=== PATIENT | female | born 1985 | race Caucasian/White ===

== ENCOUNTER 2017-11-01 12:17 | Emergency (ER) | payer BC ==
[~2017-11-01] VITALS: Ht 177.8 cm; Wt 69.1 kg
[2017-11-01 13:21] LABS: BASOPHILS # (AUTO) 0.01 x10^3/uL (0-0.1); BASOPHILS % (AUTO) 0 % (0-1); EOSINOPHILS # (AUTO) 0.08 x10^3/uL (0-0.4); EOSINOPHILS % (AUTO) 2 % (1-7); LYMPHOCYTES # (AUTO) 1.62 x10^3/uL (1-3.4); LYMPHOCYTES % (AUTO) 39 % (22-44); MD NO; MEAN CORPUSCULAR HEMOGLOBIN 35.4 pg (27.0-34.8); MEAN CORPUSCULAR HGB CONC 34.3 g/dL (32.4-35.8); MEAN CORPUSCULAR VOLUME 103.3 fL (80-100); MEAN PLATELET VOLUME 7.4 fL (7.4-10.4); MONOCYTES # (AUTO) 0.46 x10^3/uL (0.2-0.8); MONOCYTES % (AUTO) 11 % (2-9); NEUTROPHILS # (AUTO) 2.03 x10^3/uL (1.8-6.8); NEUTROPHILS % (AUTO) 48 % (42-75); PLATELET COUNT 238 x10^3/uL (130-400); RED BLOOD COUNT 4.21 x10^6/uL (3.82-5.3); RED CELL DISTRIBUTION WIDTH 13.8 % (9.6-15.2)
[2017-11-01] MEDS ORDERED: ONDANSETRON ODT 4 MG ONE (13:27)
[2017-11-01] MEDS ORDERED: KETOROLAC 30 MG/1 ML ONE (13:28)
[2017-11-01 13:30] LABS: ALBUMIN 3.5 g/dL (3.4-5.0); ANION GAP 9 mmol/L (5-15); CALCIUM 8.5 mg/dL (8.5-10.1); CHLORIDE 110 mmol/L (98-107)
[2017-11-01] MEDS ORDERED: ONDANSETRON ODT 4 MG PO ONE (13:30)
[2017-11-01] MEDS ORDERED: KETOROLAC 30 MG/1 ML IM ONE (13:30)
[2017-11-01 13:52] LABS: CULTURE INDICATED? YES; MICROSCOPIC INDICATED
[2017-11-01 14:39] VITALS: BP 132/87
[2017-11-01] MEDS ORDERED: CEFTRIAXONE 1,000 MG ONE (14:45)
[2017-11-01] MEDS ORDERED: CEFTRIAXONE 1,000 MG IM ONE (15:00)
== END 2017-11-01 15:24 | disposition home or self-care (01) ==
LOC: ED 15:18
DX: N30.00 Acute cystitis without hematuria (principal)
CPT/HCPCS: 36415; 76830; 80048; 81001; 82040; 84703; 85025; 87077; 87086; 87186; 96372; 99285; J0696; J1885; Q0162

== ENCOUNTER 2018-08-06 13:51 | Emergency (ER) | payer BC ==
[~2018-08-06] VITALS: Ht 177.8 cm; Wt 70.8 kg
[2018-08-06 13:53] VITALS: BP 133/83
[2018-08-06 14:12] LABS: BASOPHILS # (AUTO) 0.02 x10^3/uL (0-0.1); BASOPHILS % (AUTO) 0 % (0-1); EOSINOPHILS # (AUTO) 0.04 x10^3/uL (0-0.4); EOSINOPHILS % (AUTO) 1 % (1-7); LYMPHOCYTES # (AUTO) 1.84 x10^3/uL (1-3.4); LYMPHOCYTES % (AUTO) 35 % (22-44); MD NO; MEAN CORPUSCULAR HEMOGLOBIN 34.8 pg (27.0-34.8); MEAN CORPUSCULAR HGB CONC 34.4 g/dL (32.4-35.8); MEAN CORPUSCULAR VOLUME 101.3 fL (80-100); MEAN PLATELET VOLUME 7.7 fL (7.4-10.4); MONOCYTES # (AUTO) 0.54 x10^3/uL (0.2-0.8); MONOCYTES % (AUTO) 10 % (2-9); NEUTROPHILS # (AUTO) 2.76 x10^3/uL (1.8-6.8); NEUTROPHILS % (AUTO) 53 % (42-75); PLATELET COUNT 252 x10^3/uL (130-400); RED BLOOD COUNT 3.89 x10^6/uL (3.82-5.3)
--- NOTE | 2018-08-06 14:20 | NUR ---
PT AMBULATED STEADIY TO ROOM FROM LOBBY WITH [employer] OPERATOR. PT REPORTS INTERMITTENT RLQ ABD PAIN X 'A WHILE'. NO AGGRAVATING OR RELIEVING FACTORS. RLQ NON-TENDER. DENIES N/V/D/FEVER. LMP: "I'M ON IT NOW" PT TO US AT THIS TIME. PT AWARE OF NEED FOR UA.
[2018-08-06 14:25] LABS: ALANINE AMINOTRANSFERASE 27 U/L (12-78); ALBUMIN 3.9 g/dL (3.4-5.0); ANION GAP 6 mmol/L (5-15); CALCIUM 8.6 mg/dL (8.5-10.1); CHLORIDE 108 mmol/L (98-107)
[2018-08-06 14:30] LABS: ALKALINE PHOSPHATASE 55 U/L (45-117); BILIRUBIN,TOTAL 0.6 mg/dL (0.2-1.0); TOTAL PROTEIN 7.3 g/dL (6.4-8.2)
--- NOTE | 2018-08-06 14:48 | NUR ---
PT AWARE OF ORDERED STRAIGHT CATH. PT REPORTS "I'M REALLY BARELY BLEEDING. CAN I TRY IT IN A CUP INSTEAD?". PT EDUCATED ON CLEAN CATCH AND AMBULATED STEADILY TO BATHROOM TO PROVIDE UA. UA COLLECTED AND SENT TO LAB
[2018-08-06 15:02] LABS: MICROSCOPIC AUTO
[2018-08-06 15:05] LABS: CULTURE INDICATED? NO
== END 2018-08-06 15:47 | disposition home or self-care (01) ==
LOC: ED 15:41
DX: R10.31 Right lower quadrant pain (principal); R10.11 Right upper quadrant pain
CPT/HCPCS: 36415; 76700; 80053; 81001; 84703; 85025; 99284